=== PATIENT | male | born 1965 | race African-American/Black ===

== ENCOUNTER 2016-07-31 15:06 | Emergency (ER) | payer OTHER ==
[~2016-07-31] VITALS: Ht 175.3 cm; Wt 101.2 kg
[2016-07-31 18:24] LABS: BASOPHILS % (AUTO) 1.4 % (0.0-2.0); EOSINOPHILS % (AUTO) 2.4 % (0.0-3.0); LYMPHOCYTES % (AUTO) 36.9 % (20.0-45.0); MEAN CORPUSCULAR HEMOGLOBIN 31.3 PG (27.0-31.0); MEAN CORPUSCULAR HGB CONC 33.8 G/DL (32.0-36.0); MEAN CORPUSCULAR VOLUME 93 FL (80-99); MEAN PLATELET VOLUME 6.5 FL (6.5-10.1); MONOCYTES % (AUTO) 5.8 % (1.0-10.0); NEUTROPHILS % (AUTO) 53.5 % (45.0-75.0); PLATELET COUNT 286 K/UL (150-450); RED BLOOD COUNT 4.31 M/UL (4.70-6.10); RED CELL DISTRIBUTION WIDTH 12.6 % (11.6-14.8); WHITE BLOOD COUNT 8.6 K/UL (4.8-10.8)
[2016-07-31 18:46] LABS: ALANINE AMINOTRANSFERASE 20 U/L (3-41); ALBUMIN/GLOBULIN RATIO 1.1 (1.0-2.7); ANION GAP 17 (5-15); ASPARTATE AMINO TRANSFERASE 25 U/L (5-40); CALCIUM 9.7 mg/dL (8.6-10.2); CARBON DIOXIDE 21 mEQ/L (20-30); CHLORIDE 100 mEQ/L (98-107); CREATININE 0.8 mg/dL (0.7-1.2); GLOMERULAR FILTRATION RATE > 60 mL/min (>60); HEMOLYSIS 104; POTASSIUM 4.8 mEQ/L (3.4-4.9); SODIUM 138 mEQ/L (135-145); TOTAL PROTEIN 7.9 g/dL (6.6-8.7)
[2016-07-31] MEDS ORDERED: BACTRIM DS TAB1 EAC1 ORAL (19:27)
[2016-07-31] MEDS ORDERED: TRAMADOL HCL50 MG ORAL (19:27)
[2016-07-31 19:41] VITALS: BP 129/85
--- NOTE | 2016-07-31 19:49 | Consultation ---
History of Present Illness General Date patient seen: Jul 31, 2016 Chief Complaint: Skin Rash/Abscess Reason for Consultation: Anal fistula / abscess Present Illness HPI 51 year old male presents to ED today complaining of anal pain for weeks. As per patient and his partner, he has had intermittent pain and drainage from his anus for years. he has had infections in perianal area prior and usually resolve on their own. States most recent episode began 3-4 weeks ago. he had perianal pain with drainage so he went to see his pcp at his clinic. Was initially given oral abx that did not work and was then given another oral abx that he states worked well. he does not recall what the names of the abx were. he was doing well but still had some pain especially with BM so he came in for evaluation in ED tonight. surgery called to evaluate. when seen at bedside patient is doing well otherwise. has had chronic problems with perianal issues but has not been able to seek care or definitive diagnosis as per patient. no n/v/f/c. pain at times but tolerable. at times uses gauze around the area because of foul drainage. Allergies: Coded Allergies: NO KNOWN ALLERGIES (Unverified Allergy, Unknown, 03/20/15) Medication History Scheduled Trimethoprim/Sulfamethoxazole 160/800* (Bactrim Ds Tablet*), 1 TAB ORAL TWICE A DAY Scheduled PRN Tramadol Hcl* (Ultram*), 50 MG ORAL Q6H PRN for For Pain Patient History History Provided By: Patient Healthcare decision maker Resuscitation status Advanced Directive on File Past Medical/Surgical History Past Medical/Surgical History: (1) Perianal abscess (2) Nose fracture Review of Systems Constitutional: Denies: chills, fever, malaise, no symptoms, other, see HPI, sweats, weakness Eye: Denies: acuity changes, blurred vision, discharge, double vision, eye pain , no symptoms, nose congestion, nose pain, other, see HPI, tearing ENT: Denies: ear discharge, ear pain, hearing loss, mouth pain, nasal discharge , no symptoms, nose congestion, nose pain, other, see HPI, throat pain, throat swelling Respiratory: Denies: CORRIGAN, cough, no symptoms, orthopnea, other, see HPI, shortness of breath, sputum, stridor, wheezing Cardiovascular: Denies: PND, chest pain, edema, no symptoms, other, palpitations, see HPI, syncope Gastrointestinal: Denies: abdominal pain, constipation, diarrhea, hematemesis, melena, nausea, no symptoms, other, see HPI, vomiting Genitourinary: Denies: discharge, dysuria, frequency, hematuria, incontinence, no symptoms, other, pain, retention, see HPI, urgency, vag bleed/dc Musculoskeletal: Denies: back pain, gout, joint pain, joint swelling, muscle pain, muscle stiffness, no symptoms, other, see HPI Skin: Denies: change in color, change in hair/nails, dryness, lesions, no symptoms, other, rash, see HPI Psychiatric: Denies: HI, SI, anxiety, depressed feelings, emotional problems, hallucinations, no symptoms, other, prior hx, see HPI Neurological: Denies: dizziness, focal weakness, headache, no symptoms, numbness, other, paresthesia, see HPI, seizure, syncope, tingling, tremors Endocrine: Denies: excessive sweating, flushing, increased thirst, increased urine, intolerance to temperature, no symptoms, other, see HPI, unexplained weight loss Hematologic/Lymphatic: Denies: anemia, blood clots, diathesis, easy bleeding, easy bruising, no symptoms, other, see HPI, swollen glands All Other Systems: negative except mentioned in HPI Physical Exam General Appearance: WD/WN, no apparent distress, alert Lines, tubes and drains: peripheral HEENT: normocephalic, atraumatic Neck: non-tender, supple Respiratory/Chest: normal breath sounds, no respiratory distress, no accessory muscle use Cardiovascular/Chest: normal peripheral pulses, normal rate Abdomen: normal bowel sounds, non tender, soft Genitourinary/Rectal: normal rectal tone, other - multiple perianal lesions noted that are chronic in nature. they seem to be prior fistulas that have healed in multiple stages of healing. no area of fluctuance noted. no erythema. no significant induration but does have chronic scar tissue from prior episodes. small area from most recent fistula with small amont of drainage when probed. rectal exam normal otherwise. Extremities: normal range of motion Neurologic: tomato grader II-XII grossly normal, no motor/sensory deficits Last 24 Hour Vital Signs Date Time Temp Pulse Resp B/P Pulse Ox O2 Delivery O2 Flow Rate FiO2 07/31/16 15:22 97.3 101 19 121/74 95 Room Air Laboratory Tests Test 07/31/16 18:05 White Blood Count 8.6 K/UL (4.8-10.8) Red Blood Count 4.31 M/UL (4.70-6.10) L Hemoglobin 13.5 G/DL (14.2-18.0) L Hematocrit 39.9 % (42.0-52.0) L Mean Corpuscular Volume 93 FL (80-99) Mean Corpuscular Hemoglobin 31.3 PG (27.0-31.0) H Mean Corpuscular Hemoglobin Concent 33.8 G/DL (32.0-36.0) Red Cell Distribution Width 12.6 % (11.6-14.8) Platelet Count 286 K/UL (150-450) Mean Platelet Volume 6.5 FL (6.5-10.1) Neutrophils (%) (Auto) 53.5 % (45.0-75.0) Lymphocytes (%) (Auto) 36.9 % (20.0-45.0) Monocytes (%) (Auto) 5.8 % (1.0-10.0) Eosinophils (%) (Auto) 2.4 % (0.0-3.0) Basophils (%) (Auto) 1.4 % (0.0-2.0) Sodium Level 138 mEQ/L (135-145) Potassium Level 4.8 mEQ/L (3.4-4.9) Chloride Level 100 mEQ/L (98-107) Carbon Dioxide Level 21 mEQ/L (20-30) Anion Gap 17 (5-15) H Blood Urea Nitrogen 7 mg/dL (7-23) Creatinine 0.8 mg/dL (0.7-1.2) Estimat Glomerular Filtration Rate > 60 mL/min (>60) Glucose Level 125 mg/dL (74-106) H Calcium Level 9.7 mg/dL (8.6-10.2) Total Bilirubin 0.3 mg/dL (0.0-1.2) Aspartate Amino Transf (AST/SGOT) 25 U/L (5-40) Alanine Aminotransferase (ALT/SGPT) 20 U/L (3-41) Alkaline Phosphatase 100 U/L (40-129) Total Protein 7.9 g/dL (6.6-8.7) Albumin 4.3 g/dL (3.5-5.2) Globulin 3.6 g/dL Albumin/Globulin Ratio 1.1 (1.0-2.7) Height (Feet): 5 Height (Inches): 9.00 Weight (Pounds): 223 Assessment/Plan Problem List: (1) Perianal abscess ICD Codes: K61.0 - Anal abscess SNOMED: 28252940 Status: stable Assessment/Plan 51 M chronic anal fistula's. currently has one new fistula that drains intermittently. no erythema, induration, or acute infection noted. Afebrile, HD stable, labs normal. No acute surgical intervention necessary as this is more of a chronic problem. Oral Abx PRN pain meds can follow up with me in clinic next week for repeat exam and anoscopy. Will likely need Examination under anesthesia to identify fistula tract Given age would recommend colonoscopy prior if can be arranged Findings discussed with patient and partner. I gave them my card and they will schedule appointment to see me next week. Scott Bergman Jul 31, 2016 19:49
--- NOTE | 2016-07-31 23:00 | Emergency Room Report ---
History of Present Illness General Chief Complaint: Skin Rash/Abscess Source: Patient Present Illness HPI The patient is a 51-year-old male with a history of HIV and diabetes presenting with anal pain which she states began 2 weeks prior. The patient states that he has had a history of perianal abscesses and this feels similar. Pain is described as a 10 out of 10 sharp sensation which is worse with defecation and sitting. The pain does not radiate. The patient has noticed drainage from the area. Patient states that he was seen by his primary care physician recently and placed on oral antibiotics which she does not remember the name of but states that it did not help. The patient denies any other symptoms including N, V, F, Chills, dysuria, hematuria, diarrhea, constipation, melena, hematochezia Allergies: Coded Allergies: NO KNOWN ALLERGIES (Unverified Allergy, Unknown, 03/20/15) Patient History Past Medical History: see triage record Pertinent Family History: none Reviewed Nursing Documentation: PMH: Agreed, PSxH: Agreed Nursing Documentation-PMH Hx Diabetes: Yes Review of Systems All Other Systems: negative except mentioned in HPI Physical Exam Vital Signs Date Time Temp Pulse Resp B/P Pulse Ox O2 Delivery O2 Flow Rate FiO2 07/31/16 15:22 97.3 101 19 121/74 95 Room Air Sp02 EP Interpretation: reviewed, normal General Appearance: no apparent distress, alert, GCS 15, non-toxic Head: normocephalic, atraumatic ENT: hearing grossly normal, normal pharynx, no angioedema, normal voice Gastrointestinal: normal bowel sounds, non tender, soft, non-distended, no guarding, no rebound Rectal: normal rectal tone, tenderness - perianal, other - Multiple abscesses perianally at different stages of healing. Genitourinary: normal inspection, no CVA tenderness Musculoskeletal: back normal, gait/station normal, normal range of motion, non- tender Neurologic: alert, oriented x3, responsive, motor strength/tone normal, sensory intact, speech normal Psychiatric: judgement/insight normal, memory normal, mood/affect normal, no suicidal/homicidal ideation Skin: normal color, no rash, warm/dry, well hydrated Medical Decision Making PA Attestation Dr. Rolon is my supervising physician. Patient management was discussed with my supervising physician Diagnostic Impression: Primary Impression: Perianal abscess ER Course The patient is a 51-year-old male with a history of HIV and diabetes presenting with anal pain which she states began 2 weeks prior Differential diagnosis considered: Perianal abscess, hemorrhoids, cellulitis PE: vitals WNL. afebrile. NAD Multiple abscesses perianally at different stages of healing. There is some clear to white drainage. TTP. Normal rectal tone. CBC and CMP unremarkable. Dr. Bergman was consulted and examined the patient. He recommends that the patient see him in his clinic in 7 days for further evaluation. He also recommends the patient be placed on Bactrim and conduct sitz baths. The patient understands and will be discharged. ER precautions are given Laboratory Tests Test 07/31/16 18:05 White Blood Count 8.6 K/UL (4.8-10.8) Red Blood Count 4.31 M/UL (4.70-6.10) L Hemoglobin 13.5 G/DL (14.2-18.0) L Hematocrit 39.9 % (42.0-52.0) L Mean Corpuscular Volume 93 FL (80-99) Mean Corpuscular Hemoglobin 31.3 PG (27.0-31.0) H Mean Corpuscular Hemoglobin Concent 33.8 G/DL (32.0-36.0) Red Cell Distribution Width 12.6 % (11.6-14.8) Platelet Count 286 K/UL (150-450) Mean Platelet Volume 6.5 FL (6.5-10.1) Neutrophils (%) (Auto) 53.5 % (45.0-75.0) Lymphocytes (%) (Auto) 36.9 % (20.0-45.0) Monocytes (%) (Auto) 5.8 % (1.0-10.0) Eosinophils (%) (Auto) 2.4 % (0.0-3.0) Basophils (%) (Auto) 1.4 % (0.0-2.0) Sodium Level 138 mEQ/L (135-145) Potassium Level 4.8 mEQ/L (3.4-4.9) Chloride Level 100 mEQ/L (98-107) Carbon Dioxide Level 21 mEQ/L (20-30) Anion Gap 17 (5-15) H Blood Urea Nitrogen 7 mg/dL (7-23) Creatinine 0.8 mg/dL (0.7-1.2) Estimate Glomerular Filtration Rate > 60 mL/min (>60) Glucose Level 125 mg/dL (74-106) H Calcium Level 9.7 mg/dL (8.6-10.2) Total Bilirubin 0.3 mg/dL (0.0-1.2) Aspartate Amino Transferase (AST) 25 U/L (5-40) Alanine Aminotransferase (ALT) 20 U/L (3-41) Alkaline Phosphatase 100 U/L (40-129) Total Protein 7.9 g/dL (6.6-8.7) Albumin 4.3 g/dL (3.5-5.2) Globulin 3.6 g/dL Albumin/Globulin Ratio 1.1 (1.0-2.7) Lab Results Impression CBC and CMP unremarkable. No leukocytosis Last Vital Signs Date Time Temp Pulse Resp B/P Pulse Ox O2 Delivery O2 Flow Rate FiO2 07/31/16 19:41 89 16 129/85 97 Room Air 07/31/16 19:41 97.8 Status: improved Disposition: HOME, SELF-CARE Condition: Improved Scripts Tramadol Hcl* (ULTRAM*) 50 Mg Tablet 50 MG ORAL Q6H Y for For Pain, #15 TAB 0 Refills Prov: BELEN DELVALLE 07/31/16 Trimethoprim/Sulfamethoxazole 160/800* (BACTRIM DS TABLET*) 1 Each Tablet 1 TAB ORAL TWICE A DAY, #14 TAB Prov: BELEN DELVALLE 07/31/16 Patient Instructions: Abscess, How to Take a Sitz Bath Additional Instructions: I discussed my findings with the patient. All questions and concerns have been answered. Treatment and medication compliance have been addressed. I advised the patient that they need to follow up with PMD in 3-5 days. Return to ED if symptoms worsen, new symptoms arise, or if needed for any reason. Patient verbalized understanding of discharge instructions. The patient will follow up with surgeon on 07/07/2016 as discussed. BELEN DELVALLE Jul 31, 2016 22:59
== END 2016-07-31 19:46 | disposition home or self-care (01) ==
LOC: EMR 15:55
DX: K61.0 Anal abscess (principal)
CPT/HCPCS: 36415; 80053; 85025; 99284